=== PATIENT | male | born 1955 | race Caucasian/White ===

== ENCOUNTER → 2018-11-10 | Outpatient (CLI) | payer BC ==
[~2018-11-10] MED LIST: LOVA40 PO; OMEP20ER PO; OXYACE5T PO; PHENTRAMINE; PROM25 PO; RXOXYACE PO; TAMS.4ER PO
== END ==
LOC: LAB SHORT 07:33 → LAB 07:33
DX: R10.13 Epigastric pain (principal); R10.9 Unspecified abdominal pain
CPT/HCPCS: 87015; 87045; 87046; 87205; 87493; 87899

== ENCOUNTER 2018-12-07 07:37 | Day surgery (SDC) | payer BC ==
[~2018-12-07] VITALS: Ht 188 cm; Wt 113.4 kg
[~2018-12-07 07:37] MED LIST changes: +ALEVE SINUS PO; +Adipex-P37.5 MG PO; +Advil200 M1 PO; +FAMO20 PO; +HYOS.125 SL; +IRBE150 PO; +LIVALO2 MG PO; +QUETIAPINE FUMA50 MG PO; +ZOLP10 PO
== END 2018-12-07 10:06 | disposition home or self-care (01) ==
LOC: ORSCSDS 07:37
PROVIDERS: Surgery
PROC: 0DJD8ZZ Inspection of Lower Intestinal Tract, Via Natural or Artificial Opening Endoscopic (ICD-10-PCS; principal; 2018-12-07 09:00)
DX: Z12.11 Encounter for screening for malignant neoplasm of colon (principal); Z80.0 Family history of malignant neoplasm of digestive organs; K57.30 Diverticulosis of large intestine without perforation or abscess without bleeding; E78.5 Hyperlipidemia, unspecified; I10 Essential (primary) hypertension; E78.00 Pure hypercholesterolemia, unspecified; E11.9 Type 2 diabetes mellitus without complications; E66.9 Obesity, unspecified; Z68.33 Body mass index [BMI] 33.0-33.9, adult; Z87.891 Personal history of nicotine dependence; Z79.899 Other long term (current) drug therapy
CPT/HCPCS: J2704; J7120

== ENCOUNTER → 2021-02-12 | Outpatient (CLI) | payer BC | LOC: LAB 13:54 → LAB SHORT 13:54 | DX: R30.0 Dysuria (principal) | CPT/HCPCS: 87077; 87086; 87186 ==

== ENCOUNTER → 2021-03-02 | Outpatient (CLI) | payer BC | END | disposition home or self-care (01) | LOC: LAB 16:00 → LAB SHORT 16:00 | DX: R30.0 Dysuria (principal) | CPT/HCPCS: 87077; 87086; 87186 ==

== ENCOUNTER → 2022-05-18 | Outpatient (CLI) | payer BC | END | disposition home or self-care (01) | LOC: LAB 07:45 → LAB SHORT 07:45 | DX: L72.0 Epidermal cyst (principal) | CPT/HCPCS: 87070; 87077; 87186; 87205 ==

== ENCOUNTER 2022-10-16 11:46 | Inpatient (IN) | payer BC, MEDICARE ==
[2022-10-16] VITALS (9 sets, daily range): BP systolic 135–162; BP diastolic 79–99
[~2022-10-16] VITALS: Ht 188 cm; Wt 109.6 kg
[2022-10-16 12:26] LABS: BASOPHILS ABSOLUTE AUTO 0.05 K/mm3 (0.00-0.23); BASOPHILS PERCENT AUTO 1 % (0-2); EOSINOPHILS ABSOLUTE AUTO 0.04 K/mm3 (0.00-0.68); EOSINOPHILS PERCENT AUTO 1 % (0-6); Hematocrit 50.2 % (37.0-53.0); Hemoglobin 17.2 g/dL (13.5-17.5); IMMATURE GRAN ABSOLUTE AUTO 0.01 K/mm3 (0.00-0.10); IMMATURE GRAN PERCENT AUTO 0 % (0-1); LYMPHOCYTES ABSOLUTE AUTO 1.92 K/mm3 (0.84-5.20); LYMPHOCYTES PERCENT AUTO 32 % (21-46); MONOCYTES ABSOLUTE AUTO 0.49 K/mm3 (0.16-1.47); MONOCYTES PERCENT AUTO 8 % (4-13); Mean Corpuscular HGB 31.6 pg (26.0-34.0); Mean Corpuscular HGB Conc 34.3 g/dL (31.5-36.5); Mean Corpuscular Volume 92 fL (80-100); Mean Platelet Volume 9.4 fL (9.1-12.4); NEUTROPHILS ABSOLUTE AUTO 3.59 K/mm3 (1.96-9.15); NEUTROPHILS PERCENT AUTO 59 % (41-73); Platelet Count 237 K/mm3 (150-400); RDW Coefficient Variation 12.9 % (11.7-14.2); RDW Standard Deviation 43.5 fL (35.1-46.3); Red Blood Cell Count 5.45 M/mm3 (4.30-5.90)
[2022-10-16 12:30] LABS: Calcium, Ionized (POC) 1.15 mmol/L (1.10-1.46); Chloride (POC) 103 mmol/L (98-108); Glucose (ISTAT POC) 169 mg/dL (70-99); Hemoglobin (POC) 18.4 g/dL (13.5-17.5); Potassium (POC) 3.8 mmol/L (3.5-5.5); Sodium (POC) 137 mmol/L (135-148); Total CO2 (POC) 24 mmol/L (21-32)
[2022-10-16 12:38] LABS: Albumin, Blood 4.1 g/dL (3.4-5.0); Albumin/Globulin Ratio 1.1 (0.8-1.8); Bilirubin, Total 1.4 mg/dL (0.1-1.0); Bun/Creatinine Ratio 22.3 (12.0-20.0); Calcium, Blood 9.2 mg/dL (8.5-10.1); Creatinine, Blood 0.94 mg/dL (0.60-1.20); Globulin, Blood 3.8 g/dL (2.2-4.0); Potassium, Blood 3.8 mmol/L (3.5-5.5); Total Protein, Blood 7.9 g/dL (6.4-8.2)
[2022-10-16 12:44] LABS: International Normalized Ratio 1.04; Prothrombin Time Results 10.9 Sec (9.7-11.5)
--- NOTE | 2022-10-16 15:11 | NUR ---
RHYTHM PT FLIPPING FROM SINUS ELIAZAR TO WIDE COMPLEX RHYTHM AND BACK. EKG OBTAINED OF BOTH RHYTHMS AND SHOWN TO DR. ARTIS. HE STATES THE WIDE COMPLEX RHYTHM IS AN ACCELERATED JUNCTIONAL RHYTHM DUE TO RE-PERFUSION AND NO INTERVENTIONS ARE INDICATED. CONTINUE TO MONITOR.
--- NOTE | 2022-10-16 17:16 | NUR ---
ADMISSION TO ICU/SHIFT SUMMARY PT ARRIVES TO ICU AT 1438 POST PCI FOR STEMI. TWO STENTS PLACED, OM AND RCA. PT A&OX 4. FOLLOWS COMMANDS. STATES HE IS READY FOR DISCHARGE. EXPLAINED NORMAL COURSE OF STAYS POST PCI SEVERAL TIMES. LUNGS CLEAR. DENIES CHEST PAIN. PT HAD ONE EPISODE OF ARRTHYMIA, SEE EKG AND STRIP, DR ARTIS AWARE, REPORTED JUNCTIONAL REPERFUSION RHYTHM. CURRENTLY NSR, RATE 70-80'S. HTN NOTED. TR BAND TO RIGHT WRIST, CURRENTLY IN PROCESS OF DEFLATING. PT ABLE TO STAND AT BEDSIDE TO USE URINAL. FAMILY IN ROOM. WILL CONTINUE TO MONITOR UNTIL REPORT TO ONCOMING NURSE.
--- NOTE | 2022-10-16 19:47 | NUR ---
ASSUMED CARE OF PT AT 1900 PT AWAKE SITTING UP IN BED WITH MANY FAMILY AND FRIENDS IN ROOM AT THIS TIME. PT EATING FOOD BROUGHT IN BY FAMILY. A/O X4 VITALS WNL AT THIS TIME. TR BAND IN PLACE STILL. PT USING ARM WITH TR BAND. EDUCATED THAT HE NEEDS TO NOT USE THAT WRIST. BRACE IS ON AND SECURE. SEE FULL ASSESSMENT FOR FUTHER INFORMATION.
[2022-10-17] VITALS (14 sets, daily range): BP systolic 129–154; BP diastolic 68–107
[2022-10-17 03:24] LABS: Hematocrit 47.3 % (37.0-53.0); Hemoglobin 16.1 g/dL (13.5-17.5); Mean Corpuscular HGB 31.6 pg (26.0-34.0); Mean Corpuscular Volume 93 fL (80-100); Mean Platelet Volume 9.7 fL (9.1-12.4); Platelet Count 221 K/mm3 (150-400); RDW Coefficient Variation 12.9 % (11.7-14.2); RDW Standard Deviation 44.2 fL (35.1-46.3); White Blood Cell Count 8.96 K/mm3 (4.00-11.30)
[2022-10-17 03:38] LABS: Bun/Creatinine Ratio 19.8 (12.0-20.0); Calcium, Blood 8.2 mg/dL (8.5-10.1); Creatinine, Blood 1.01 mg/dL (0.60-1.20); Potassium, Blood 3.9 mmol/L (3.5-5.5)
--- NOTE | 2022-10-17 05:41 | NUR ---
END OF SHIFT SUMMARY PT RESTED MOST OF THE NIGHT. DECLINED HOSPITAL CPAP MACHINE. ELIAZAR INTO UPPER 40'S AND APNEIC EPISODES THAT LASTED UP TO 30 SECONDS. PT DID NOT DESAT WHILE EPISODES HAPPENED. >93% RA ALL SHIFT. PVC'S NOTICED RANDOMLY BUT NOT FREQUENT. BP AND HR WNL WITH ONLY ONE SBP 151. EMAR MEDS WORKED WELL. SALINE LOCKED. WILL CONTINUE TO MONITOR UNTIL REPORT GIVEN TO DAY SHIFT RN.
--- NOTE | 2022-10-17 08:10 | NUR ---
ASSUMED CARE REPORT FROM LEIDA RN AT 0700. PT RESTING IN BED. A&OX 4. DENIES CP OR OTHER COMPLAINTS. STATES HE IS READY TO GO HOME. LUNGS CLEAR. 1 AVB ON MONITOR, RATE 50-60'S. ONE RUN OF 5 BEAT VTACH, ASYMPTOMATIC. HTN NOTED, MEDICATED PER EMAR. RIGHT RADIAL ACCESS SITE WNL, ARM BOARD IN PLACE. PT INDEPENDENT IN ROOM. WILL CONTINUE TO MONITOR.
--- NOTE | 2022-10-17 11:00 | NUR ---
TRANSFER TO PCU REPORT TO ADRIAN STEVEN. DR ARTIS ROUNDED, STATUS CHANGED TO PCU. NO ACUTE CHANGES SINCE AM ASSESSMENT. NO FURTHER ECTOPY. ALL BELONGINGS SENT TO PCU.
--- NOTE | 2022-10-17 11:10 | NUR ---
Transfer note Pt to room at approx 1057, walked over from ICU. Pt alert, oriented x4; calm and cooperative with care. Pt ind in room. Pt denies pain, chest pain/pressure, sob, nausea, dizziness and numb/tingling. Spo2 > 90% on ra, breathing even and unlabored. Tele sinus kamaljit 50-60's, sbp 130. Abd soft, nontender with normoactive bt. I agree with the previous rns assessment. Vss. No other acute changes noted. Will continue to monitor.
--- NOTE | 2022-10-17 17:19 | NUR ---
Shift Summary No acute changes noted. Pt up walking ind in room and walking in halls with family. Vss. Will continue to monitor.
--- NOTE | 2022-10-17 21:14 | NUR ---
PT REQUESTS TO NOT BE WOKEN UP FOR MIDNIGHT VITALS
[2022-10-18 05:16] VITALS: BP 129/76
--- NOTE | 2022-10-18 06:46 | NUR ---
MARKETING PROJECT COORDINATOR SUMMARY ASSUMED CARE OF THE PT AT 1900. HE IS ALERT AND ORIENTED X4, INDEPENDENT IN THE ROOM. VITAL SIGNS STABLE. HE DID HAVE SOME BRADYCARDIA DOWN INTO THE UPPER 40S BUT IS ASYMPTOMATIC. BP STABLE. PT REFUSED NIGHT STATIN DUE TO PREVIOUSLY BEING UNABLE TO TAKE THEM. UP INDEPENDENTLY THROUGHOUT THE SHIFT. RIGHT RADIAL SITE INTACT. SATURATING >92% ON RA. NO COMPLAINTS OF CHEST PAIN. PT IS READY TO GO HOME.
[2022-10-18 07:30] VITALS: BP 132/81
[2022-10-18] MEDS ORDERED: ASPI81CH PO (07:36)
[2022-10-18] MEDS ORDERED: Lopressor 25 mg25 MG PO (07:36)
[2022-10-18] MEDS ORDERED: LIPITOR80 MG PO (07:36)
[2022-10-18] MEDS ORDERED: CLOP75 PO (07:36)
[2022-10-18] MEDS ORDERED: LOSA25 PO (07:36)
--- NOTE | 2022-10-18 09:38 | NUR ---
DISCHARGE PT WAS A/O X4. VSS. SPO2 >92% ON RA. RESPIRATIONS EVEN AND UNLABORED. PT IS ASYMPTOMATIC. DENIES ANY ANGINA OR CHEST PRESSURE. PT HR IN THE 60'S, SINUS RHYTHM. BP STABLE. PT HAS RIGHT RADIAL ACCESS SITE THAT IS HEALING WELL. PT DENIED ANY TENDERENESS IN THE AREA. NO NEW OOZING OR HEMATOMA NOTED. SMALL PIN POINT SITE ONLY WAS NOTED BY THIS RN. PT INDEPENDENT IN ROOM. HE WAS ABLE TO GET UP AND SHOWER W/O COMPLICATION THIS AM. IV WAS REMOVED BY THIS RN WITH TIP INTACT FOR DISCHARGE. DISCHARGE INSTRUCTIONS WERE DISCUSSED. PT ALREADY HAS APPT MADE WITH PCP FOR Tuesday10/21/22. AT BEDSIDE FOR DISCHARGE. PT DECLINED WHEELCHAIR AND AMBULATED OUT OF ROOM @0930.
== END 2022-10-18 09:30 | disposition home or self-care (01) | DRG 247 ==
LOC: ER 11:46 → ICUW 13:00 → PCU 13:00 → ICUE 14:33 → ICUW 17:34 → PCU 10-17 10:57
PROVIDERS: Emergency Medicine; Physician Assistant; ADMIT Internal Medicine Interventional Cardiology
PROC: 027135Z Dilation of Coronary Artery, Two Arteries with Two Drug-eluting Intraluminal Devices, Percutaneous Approach (ICD-10-PCS; principal; 2022-10-16)
PROC: 4A023N7 Measurement of Cardiac Sampling and Pressure, Left Heart, Percutaneous Approach (ICD-10-PCS; 2022-10-16)
PROC: B211YZZ Fluoroscopy of Multiple Coronary Arteries using Other Contrast (ICD-10-PCS; 2022-10-16)
DX: I21.19 ST elevation (STEMI) myocardial infarction involving other coronary artery of inferior wall (principal); I10 Essential (primary) hypertension; F17.210 Nicotine dependence, cigarettes, uncomplicated; E78.5 Hyperlipidemia, unspecified; I25.10 Atherosclerotic heart disease of native coronary artery without angina pectoris; Z96.652 Presence of left artificial knee joint; Z91.148 Patient's other noncompliance with medication regimen for other reason; Z98.890 Other specified postprocedural states; Z88.8 Allergy status to other drugs, medicaments and biological substances; Z79.899 Other long term (current) drug therapy
CPT/HCPCS: 36415; 76937; 80047; 80048; 80053; 83690; 83880; 84484; 85014; 85025; 85027; 85610; 85730; 92941; 93005; 93010; 93306; 93454; 99152; 99153; 99285-25; A9270; C1725; C1769; C1874; C1887; C1894; C9606; J1644; J7030; Q9967

== ENCOUNTER 2024-06-15 07:34 | Day surgery (SDC) | payer OTHER ==
[~2024-06-15] VITALS: Ht 188 cm; Wt 116.3 kg
[~2024-06-15 07:34] MED LIST changes: +ASPI81CH PO; +CLOP75 PO; +LIPITOR80 MG PO; +LOSA25 PO; +Lactated Ringer's 1,000 ML IV ONE; +Lopressor 25 mg25 MG PO; +propofoL 50 ML IV ONE
[2024-06-15] MEDS ORDERED: UBID10 (08:48)
[2024-06-15] MEDS ORDERED: Lactated Ringer's 1,000 ML IV ONE (09:06)
[2024-06-15] MEDS ORDERED: propofoL 50 ML IV ONE (10:04)
[2024-06-15 10:28] VITALS: BP 117/73
== END 2024-06-15 10:32 | disposition home or self-care (01) ==
LOC: ORSCSDS 07:34
PROVIDERS: Surgery
PROC: 0DBM8ZX Excision of Descending Colon, Via Natural or Artificial Opening Endoscopic, Diagnostic (ICD-10-PCS; principal; 2024-06-15 09:15)
PROC: 0DBN8ZX Excision of Sigmoid Colon, Via Natural or Artificial Opening Endoscopic, Diagnostic (ICD-10-PCS; principal; 2024-06-15 09:15)
DX: Z12.11 Encounter for screening for malignant neoplasm of colon (principal); Z80.0 Family history of malignant neoplasm of digestive organs; D12.5 Benign neoplasm of sigmoid colon; K63.5 Polyp of colon; K57.30 Diverticulosis of large intestine without perforation or abscess without bleeding; I21.3 ST elevation (STEMI) myocardial infarction of unspecified site; G47.30 Sleep apnea, unspecified; I10 Essential (primary) hypertension; K21.9 Gastro-esophageal reflux disease without esophagitis; E78.5 Hyperlipidemia, unspecified; Z87.891 Personal history of nicotine dependence; Z79.82 Long term (current) use of aspirin; Z79.899 Other long term (current) drug therapy
CPT/HCPCS: 88305; J2704; J7120